=== PATIENT | male | born 1975 | race African-American/Black ===

== ENCOUNTER → 2016-05-22 | Day surgery (SDC) | payer OTHER ==
[2016-05-22 12:38] LABS: HCT 42.8 % (42.0-52.0); HGB 15.2 g/dl (13.2-18.0); MCH 29.6 pg (25.0-31.0); MCHC 35.5 g/dL (32.0-36.0); MCV 83.3 fL (78.0-100.0); MPV 9.2 fL (6.0-9.5); RBC 5.14 M/uL (4.70-6.00); RDW 13.1 % (11.5-14.0); WBC 12.2 K/uL (4.0-10.5)
[2016-05-22 12:53] LABS: INR 1.02 (0.9-1.2); PTT 26.2 SECONDS (23.2-31.4)
[2016-05-22 12:59] LABS: POTASSIUM 3.9 mmol/L (3.5-5.1)
== END | disposition home or self-care (01) ==
LOC: FAS 11:00
PROVIDERS: Surgery
DX: K40.90 Unilateral inguinal hernia, without obstruction or gangrene, not specified as recurrent (principal); K42.9 Umbilical hernia without obstruction or gangrene; I10 Essential (primary) hypertension; F17.290 Nicotine dependence, other tobacco product, uncomplicated; Z82.49 Family history of ischemic heart disease and other diseases of the circulatory system
CPT/HCPCS: 36415; 80048; 85610; 85730; 88302; C1781; J0690; J2704; J3010